=== PATIENT | male | born 1975 | race Caucasian/White ===

== ENCOUNTER 2017-11-25 11:57 | Emergency (ER) | payer SELFPAY ==
[~2017-11-25] VITALS: Ht 175.3 cm; Wt 78.2 kg
[2017-11-25 12:01] VITALS: BP 133/82; Ht 175.3 cm; Wt 78.2 kg
[2017-11-25 12:35] LABS: BASOPHILS 0.2 % (0-2); EOSINOPHILS 0.5 % (0-7); HEMATOCRIT 41.9 % (42.0-54.0); HEMOGLOBIN 15.3 g/dL (13.5-17.5); IMMATURE GRANULOCYTES 0.2 % (0-5); LYMPHOCYTES 29.8 % (15-50); MCH 28.8 pg (26.0-34.0); MCHC 36.5 g/dL (31.0-37.0); MCV 78.9 fL (80.0-100.0); MEAN PLATELET VOLUME 8.5 fL (7.4-10.4); MONOCYTES 5.6 % (2-11); NEUTROPHILS 63.7 % (40-80); PLATELET COUNT 186 10x3/uL (130-400); RBC 5.31 10x6/uL (4.20-6.10); RDW 13.5 % (11.5-14.5); WBC 6.6 10x3/uL (4.8-10.8)
[2017-11-25 12:46] LABS: ALBUMIN 3.8 g/dL (3.4-5.0); ALKALINE PHOSPHATASE 64 U/L (46-116); ALT (SGPT) 33 U/L (10-68); CALC OSMOLALITY 276 mosm/kg (275-300); CARBON DIOXIDE 28.8 mmol/L (21.0-32.0); CHLORIDE - SERUM 104 mmol/L (98-107); CREATININE - SERUM 0.9 mg/dL (0.6-1.3); GLUCOSE 96 mg/dL (74-106); POTASSIUM - SERUM 4.1 mmol/L (3.5-5.1); PROTEIN - SERUM 7.5 g/dL (6.4-8.2); SODIUM 139 mmol/L (136-145); UREA NITROGEN 11 mg/dL (7-18); eGFR NON AFRICAN AMERICAN > 90 mL/min (90-120)
[2017-11-25 12:49] LABS: APPEARANCE CLEAR (CLEAR); BILIRUBIN NEGATIVE (NEGATIVE); COLOR YELLOW (YELLOW); GLUCOSE NEGATIVE (NEGATIVE); KETONE NEGATIVE (NEGATIVE); NITRITE NEGATIVE (NEGATIVE); PROTEIN NEGATIVE (NEGATIVE); UROBILINOGEN NORMAL (NORMAL)
[2017-11-25 12:50] LABS: AMYLASE - SERUM 52 U/L (25-115); LIPASE 109 U/L (73-393)
[2017-11-25 12:51] LABS: TROPONIN-I < 0.017 ng/mL (0.000-0.060)
[2017-11-25] MEDS ORDERED: LIBRIUM5 MG PO (16:51)
== END 2017-11-25 18:50 | disposition home or self-care (01) ==
LOC: D.ER 11:57
PROVIDERS: Family Medicine
DX: R10.9 Unspecified abdominal pain (principal); R53.1 Weakness; R42 Dizziness and giddiness

== ENCOUNTER → 2018-03-11 09:31 | Outpatient (CLI) | payer SELFPAY ==
[2017-11-25 12:01] VITALS: BMI 25.4
[~2018-03-11 09:31] MED LIST: LIBRIUM5 MG PO
== END | disposition home or self-care (01) ==
LOC: D.NM 09:30
DX: R10.10 Upper abdominal pain, unspecified (principal); K21.9 Gastro-esophageal reflux disease without esophagitis